=== PATIENT | male | born 1970 | race African-American/Black ===

== ENCOUNTER 2017-05-10 01:37 | Observation (INO) | payer OTHER ==
[~2017-05-10 01:37] MED LIST: LIPITOR20 M1 PO; MEN'S DAILY FO1 EACH PO
[2017-05-10 02:13] LABS: BASO % 0.2 % (0-2); EOSINOPHIL ABSOLUTE COUNT 0.3 tho/cmm (0.0-0.7); HCT-HEMATOCRIT 44.3 % (36.0-53.5); HGB-HEMOGLOBIN 15.2 gm/dl (13.5-17.0); IMMATURE GRANULOCYTES ABSOLUTE 0.02 tho/cmm (0-0.03); IMMATURE GRANULOCYTES PERCENT 0.3 % (0-0.3); LYMPH ABSOLUTE COUNT 2.4 tho/cmm (0.8-4.5); MCH (MEAN CORPUSCULAR HGB) 28.3 pg (28.0-32.0); MCHC MEAN CORPUSCULAR HGB CONC 34.3 % (32.0-36.0); MCV (MEAN CELL VOLUME) 82.5 fl (82.0-96.0); MEAN PLATELET VOLUME 11.3 cmc (9.4-12.4); MONO % 10.3 % (0-12); MONOCYTE ABSOLUTE COUNT 0.6 tho/cmm (0.0-1.2); NEUTROPHIL ABSOLUTE COUNT 2.5 tho/cmm (1.6-8.0); NEUTROPHIL-AUTOMATED 2.5 tho/cmm (1.6-8.0); NEUTROPHILS % 43.2 % (40-80); PLATELET COUNT 168 tho/cmm (150-450); RED BLOOD COUNT 5.37 mil/cmm (4.40-5.70); RED CELL DISTRIBUTION WIDTH 12.8 % (12.4-16.4); WHITE BLOOD COUNT 5.8 tho/cmm (4.0-10.0)
[2017-05-10 02:36] LABS: ALBUMIN 3.7 g/dl (3.5-5.0); ALKALINE PHOSPHATASE 95 U/L (33-138); BILIRUBIN,TOTAL 0.8 mg/dl (0.0-1.5); CARBON DIOXIDE-VENOUS 24 mmol/L (22-32); CHLORIDE 105 mmol/l (96-110); CREATININE 0.84 mg/dl (0.60-1.30); SODIUM 141 mmol/L (135-145); eGFR VALUE FOR BLACK >90 mL/Min
[2017-05-10 02:38] LABS: TSH-THYROID STIMULATING HORM. 1.65 uIU/ml (0.40-3.80)
[2017-05-10 02:47] LABS: URINE LEUKOCYTE ESTERASE NEGATIVE (NEG); URINE PH 6.5 (5.0-8.0); URINE PROTEIN NEGATIVE (NEG)
[2017-05-10 02:53] LABS: ANION GAP 16 mmol/L (0-20); GLUCOSE 232 mg/dL (70-110)
[2017-05-10 02:54] LABS: MAGNESIUM 1.9 mg/dl (1.8-2.6); POTASSIUM 3.9 mmol/L (3.7-5.1)
[2017-05-10 03:01] LABS: URINE APPEARANCE CLEAR; URINE BILIRUBIN NEGATIVE (NEG); URINE BLOOD NEGATIVE (NEG); URINE COLOR YELLOW; URINE GLUCOSE (UA) LARGE (NEG); URINE KETONE SMALL (NEG); URINE NITRITE NEGATIVE (NEG)
[2017-05-10 03:14] LABS: ALB/GLOB RATIO 1.2 (0.8-2.0); ALT/SGPT 70 U/L (12-78); AST/SGOT 46 U/L (10-40); BLOOD UREA NITROGEN 13 mg/dl (6-24); CALCIUM 8.8 mg/dl (8.5-10.5)
[2017-05-11] MEDS ORDERED: ASPIRIN81 M1 PO (09:11)
[2017-05-11] MEDS ORDERED: TOPROL XL25 M1 PO (09:12)
== END 2017-05-11 12:00 ==
LOC: EDMED 01:37 → EMR2 06:07 → PCUB 07:03
PROVIDERS: Emergency Medicine; ADMIT Internal Medicine
DX: I48.91 Unspecified atrial fibrillation (principal); E78.5 Hyperlipidemia, unspecified; Z79.899 Other long term (current) drug therapy; Z98.890 Other specified postprocedural states
CPT/HCPCS: C8929; G0378; J0282; J7030